=== PATIENT | male | born 1975 | race African-American/Black ===

== ENCOUNTER 2019-12-26 23:54 | Emergency (ER) | payer OTHER ==
[2019-12-27] MEDS ORDERED: Fluorescein Opthalmic Strip ONE (00:20)
[2019-12-27] MEDS ORDERED: Proparacaine 0.5% Opth 15 ML BOT ONE (00:20)
== END 2019-12-27 01:11 ==
LOC: EEVIPCON 23:54 → ERS 23:54 → EDBD 23:54 → ERS 12-27 01:11
DX: H57.13 Ocular pain, bilateral (principal)
CPT/HCPCS: 99283